=== PATIENT | male | born 1980 | race Caucasian/White ===

== ENCOUNTER → 2020-09-27 13:55 | Outpatient (BNVA) | payer OTHER, MEDICAID, SELFPAY | PROVIDERS: Visit Provider Internal Medicine | DX: F11.99 Opioid use, unspecified with unspecified opioid-induced disorder (principal); Z72.0 Tobacco use | CPT/HCPCS: 80305 ==

== ENCOUNTER → 2020-10-04 14:45 | Outpatient (BNVA) | payer OTHER, MEDICAID, SELFPAY | PROVIDERS: Visit Provider Internal Medicine | DX: F11.20 Opioid dependence, uncomplicated (principal); Z51.81 Encounter for therapeutic drug level monitoring; Z79.899 Other long term (current) drug therapy | CPT/HCPCS: 80305 ==

== ENCOUNTER → 2020-10-11 09:37 | Outpatient (BNVA) | payer OTHER, MEDICAID, SELFPAY | PROVIDERS: Visit Provider Internal Medicine | DX: F11.20 Opioid dependence, uncomplicated (principal); Z51.81 Encounter for therapeutic drug level monitoring; Z79.899 Other long term (current) drug therapy | CPT/HCPCS: 80305 ==

== ENCOUNTER → 2020-10-16 09:20 | Outpatient (BNVA) | payer OTHER, MEDICAID, SELFPAY | PROVIDERS: Visit Provider Internal Medicine | DX: F11.99 Opioid use, unspecified with unspecified opioid-induced disorder (principal) | CPT/HCPCS: 80305 ==

== ENCOUNTER → 2020-10-30 09:23 | Outpatient (BNVA) | payer OTHER, MEDICAID, SELFPAY | PROVIDERS: Visit Provider Internal Medicine | DX: F11.90 Opioid use, unspecified, uncomplicated (principal); Z51.81 Encounter for therapeutic drug level monitoring | CPT/HCPCS: 80305 ==

== ENCOUNTER → 2020-11-13 08:55 | Outpatient (BNVA) | payer OTHER, MEDICAID, SELFPAY | PROVIDERS: Visit Provider Internal Medicine | DX: Z51.81 Encounter for therapeutic drug level monitoring (principal); F11.20 Opioid dependence, uncomplicated | CPT/HCPCS: 80305 ==

== ENCOUNTER → 2020-12-04 09:38 | Outpatient (BNVA) | payer OTHER, MEDICAID, SELFPAY | PROVIDERS: Visit Provider Internal Medicine | DX: F11.99 Opioid use, unspecified with unspecified opioid-induced disorder (principal); F10.10 Alcohol abuse, uncomplicated; F19.10 Other psychoactive substance abuse, uncomplicated; F41.9 Anxiety disorder, unspecified; Z72.0 Tobacco use; Z51.81 Encounter for therapeutic drug level monitoring | CPT/HCPCS: 80305 ==

== ENCOUNTER → 2021-01-03 10:27 | Outpatient (BNVA) | payer OTHER, MEDICAID, SELFPAY | PROVIDERS: Visit Provider Internal Medicine | DX: F11.90 Opioid use, unspecified, uncomplicated (principal); Z72.89 Other problems related to lifestyle | CPT/HCPCS: 80305 ==

== ENCOUNTER → 2021-02-05 11:41 | Outpatient (BNVA) | payer OTHER, MEDICAID, SELFPAY | PROVIDERS: Visit Provider Internal Medicine | DX: F11.99 Opioid use, unspecified with unspecified opioid-induced disorder (principal); F10.99 Alcohol use, unspecified with unspecified alcohol-induced disorder; K21.9 Gastro-esophageal reflux disease without esophagitis; Z72.0 Tobacco use; Z91.09 Other allergy status, other than to drugs and biological substances; Z51.81 Encounter for therapeutic drug level monitoring | CPT/HCPCS: 80305 ==

== ENCOUNTER 2021-03-05 11:04 | Outpatient (REF) | payer OTHER, MEDICAID, SELFPAY ==
[2021-03-05 18:29] LABS: Fentanyl, urine Not Detected (Not Detect)
== END 2021-03-05 11:05 | disposition home or self-care (01) ==
LOC: HO.LNP 11:04
PROVIDERS: PCP Internal Medicine; Visit Provider Internal Medicine
DX: F11.20 Opioid dependence, uncomplicated (principal); Z79.899 Other long term (current) drug therapy
CPT/HCPCS: 80305; 80307

== ENCOUNTER → 2021-04-01 11:31 | Outpatient (BNVA) | payer OTHER, MEDICAID, SELFPAY | PROVIDERS: PCP Internal Medicine; Visit Provider Internal Medicine | DX: F11.90 Opioid use, unspecified, uncomplicated (principal) | CPT/HCPCS: 80305 ==

== ENCOUNTER → 2021-04-29 10:39 | Outpatient (BNVA) | payer OTHER, MEDICAID, SELFPAY | PROVIDERS: PCP Internal Medicine; Visit Provider Internal Medicine | DX: Z51.81 Encounter for therapeutic drug level monitoring (principal); F11.90 Opioid use, unspecified, uncomplicated; Z72.89 Other problems related to lifestyle | CPT/HCPCS: 80305 ==

== ENCOUNTER → 2021-05-28 15:40 | Outpatient (BNVA) | payer OTHER, MEDICAID, SELFPAY | PROVIDERS: PCP Internal Medicine; Visit Provider Internal Medicine | DX: Z51.81 Encounter for therapeutic drug level monitoring (principal); F11.20 Opioid dependence, uncomplicated | CPT/HCPCS: 80305 ==

== ENCOUNTER → 2021-06-24 15:28 | Outpatient (BNVA) | payer OTHER, MEDICAID, SELFPAY | PROVIDERS: PCP Internal Medicine; Visit Provider Internal Medicine | DX: Z51.81 Encounter for therapeutic drug level monitoring (principal); F11.20 Opioid dependence, uncomplicated | CPT/HCPCS: 80305 ==

== ENCOUNTER → 2021-07-22 15:18 | Outpatient (BNVA) | payer OTHER, MEDICAID, SELFPAY | PROVIDERS: PCP Internal Medicine; Visit Provider Internal Medicine | DX: Z51.81 Encounter for therapeutic drug level monitoring (principal); F11.20 Opioid dependence, uncomplicated | CPT/HCPCS: 80305 ==

== ENCOUNTER 2021-09-03 11:47 | Emergency (ER) | payer OTHER, MEDICAID, SELFPAY ==
--- NOTE | ~2021-09-03 | XR_ITS ---
EXAMINATION: XR FOOT, LEFT CLINICAL INFORMATION: Heel pain. COMPARISON: None TECHNIQUE: AP, lateral, and oblique views of the left foot. FINDINGS: The bones and soft tissues are normal. No fracture. Alignment is anatomic. Joint spaces are maintained. XR/XR foot LT min 3V IMPRESSION: Unremarkable left foot.
[2021-09-03 12:12] VITALS: BP 126/87; PULSE 62; RESP 18; TEMP 36.1; O2SAT 99; BMI 23.7
--- NOTE | 2021-09-03 13:47 | ED_ITS ---
HPI - Extremity Problem General Chief complaint: Extremity Problem Stated complaint: heel pain for 3 days Time Seen by Provider: 09/03/21 13:41 History of Present Illness HPI Narrative: Patient complains bottom of left foot and left heel pain for several days, he thinks it is from overuse at work but is not sure, not sure He denies any other injury, no numbness weakness or tingling no fever Related Data Previous Rx's Medication Instructions Recorded acamprosate 333 mg tablet,delayed 333 mg PO BID 30 Days #60 tab 04/29/21 release omeprazole 20 mg capsule,delayed 20 mg PO DAILY 90 Days #90 cap 05/12/21 release buprenorphine 8 mg-naloxone 2 mg 2 film SUBLINGUAL DAILY 30 Days 07/22/21 sublingual film (Suboxone) #60 ea ibuprofen 800 mg tablet 800 mg PO Q8H PRN #20 tab 09/03/21 Allergies Allergy/AdvReac Type Severity Reaction Status Date / Time Seasonal Allergies Allergy Mild hayfever Verified 07/22/21 15:23 like symptoms Review of Systems Review of Systems: Positive for left foot pain Negatives are no fever no chills no headache no neck pain no back pain no ra diating pain no numbness weakness or tingling no rash no redness no laceration no wound no other joint pains Yes all other systems are reviewed and are negative PMFSH Past Medical History Source: nursing notes reviewed Medical History Alcohol abuse Alcohol use disorder Anxiety GERD (gastroesophageal reflux disease) Opioid use disorder Polysubstance abuse Tobacco abuse Social History Social History Alcohol intake: current Alcohol intake frequency: 3 or more drinks per day Patient Tobacco Use Status: Current everyday Tobacco user Tobacco use type: Cigarette Cigarettes Per Day: 15 Advance Directives: No Advance Directives Information Provided: No Physical Exam Vital Signs: Vital Signs: Last Vital Signs Temp 97.0 F 09/03/21 12:12 Pulse 62 09/03/21 12:12 Resp 18 09/03/21 12:12 BP 126/87 09/03/21 12:12 Pulse Ox 99 09/03/21 12:12 BMI result Body Mass Index 23.7 General appearance no distress Head is normocephalic atraumatic Neck is supple The back is full range of motion Respiratory no distress Extremities full range of motion x4 Skin no rashes Left foot exam there is tenderness on the plantar proximal foot and the heel, there is no redness no warmth no wound no rash, skin is normal in appearance, pulses are full intact and symmetrical in both feet, sensation and motor are intact Course Course Course Narrative: Patient with left foot and heel pain possibly from work related activity but not sure is treated with anti-inflammatory advised to follow with fisheries management biologist, or [facility] if it is found to be work related Now there is no sign of any bony injury or infection X-ray of the left foot was normal Discharge Plan Discharge Clinical Impression: Tendinitis of left foot Patient Disposition: Home, Self-Care Additional Instructions: X-ray did not show any abnormality Physical exam there was no sign of any infection It is possible this is a tendinitis from an overuse injury at work, it is also possible this is plantar fasciitis Best plan is follow with a fisheries management biologist, or [facility] for work related inj ury Return any time any worse condition or any concerns Prescriptions: New ibuprofen 800 mg tablet 800 mg PO Q8H PRN (Reason: pain) Qty: 20 0RF No Action omeprazole 20 mg capsule,delayed release(DR/EC) 20 mg PO DAILY 90 Days Qty: 90 1RF buprenorphine-naloxone [Suboxone] 8-2 mg film 2 film sublingual DAILY 30 Days Qty: 60 1RF Rx Instructions: place 1 strip/tab under (each) side of tongue acamprosate 333 mg tablet,delayed release (DR/EC) 333 mg PO BID 30 Days Qty: 60 5RF Rx Instructions: administer with mid-day and evening meals Referrals: [facility] [Provider Group] (Left foot tendinitis) Harrison Degroot MD [Physician] - Noman Ramírez DPM [Physician] - Stand Alone Forms: Work/School Release
== END 2021-09-03 14:13 | disposition home or self-care (01) ==
PROVIDERS: Emergency Provider Emergency Medicine Emergency Medical Services; PCP Internal Medicine
DX: M65.272 Calcific tendinitis, left ankle and foot (principal); F17.210 Nicotine dependence, cigarettes, uncomplicated; Z71.6 Tobacco abuse counseling; Z79.899 Other long term (current) drug therapy
CPT/HCPCS: 73630; 99282; 99283

== ENCOUNTER → 2021-09-19 14:10 | Outpatient (BNVA) | payer OTHER, MEDICAID, SELFPAY | PROVIDERS: PCP Internal Medicine; Visit Provider Internal Medicine | DX: Z13.89 Encounter for screening for other disorder (principal) | CPT/HCPCS: 80305 ==

== ENCOUNTER → 2021-11-14 15:08 | Outpatient (BNVA) | payer OTHER, MEDICAID, SELFPAY | PROVIDERS: PCP Internal Medicine; Visit Provider Internal Medicine | DX: Z51.81 Encounter for therapeutic drug level monitoring (principal); F10.10 Alcohol abuse, uncomplicated | CPT/HCPCS: 80305 ==

== ENCOUNTER 2022-05-23 15:20 | Emergency (ER) | payer OTHER, MEDICAID, SELFPAY ==
[2022-05-23 15:28] VITALS: BP 133/79; BP 136/90; PULSE 70; PULSE 76; RESP 18; TEMP 37.6; O2SAT 98; BMI 23.0
--- NOTE | 2022-05-23 15:32 | ECG_ITS ---
Test Reason : SYNCOPE Blood Pressure : / mmHG Vent. Rate : 072 BPM Atrial Rate : 072 BPM P-R Int : 138 ms QRS Dur : 094 ms QT Int : 402 ms P-R-T Axes : -02 036 037 degrees QTc Int : 440 ms Normal sinus rhythm Normal ECG When compared with ECG of 17-FEB-2018 18:42, No significant change was found Referred By: Toñito De La Torre Electronically Signed By:Hong Posey
[2022-05-23 16:03] LABS: MANUAL DIFF FLAG NO
[2022-05-23 16:05] VITALS: O2SAT 98
--- NOTE | 2022-05-23 16:07 | ED.GENADULT ---
HPI - General Adult General Chief complaint: Syncope Stated complaint: syncopy Time Seen by Provider: 05/23/22 15:31 Source: patient and EMS Mode of arrival: EMS Limitations: other (poor historian unclear story ) History of Present Illness HPI narrative: This is a 41-year-old male past medical history significant for opiate use disorder on Suboxone, anxiety, presenting to the emergency department complaints of nausea, vomiting, malaise, fatigue, headache ( diffuse, atraumatic, without vision changes or dizziness,severe x1 day. Patient tells me that he felt like he was nauseous, vomited and then passed out in his car, he was found sleeping in his car at a liquor store parking lot. He tells me he woke up to police knocking on his window. He tells me the car was parked, and there was no crash. He tells me he had 1 drink today, patient drinks atleast 6-8 drinks a day. He denies drug use he tells me he is on Suboxone. Denies SI HI. Denies chest pain, shortness of breath, vision changes, dizziness, weakness, fevers and chills GCS of 14 E (4) V (4) M (6) on arrival NIH stroke scale 0. Related Data Previous Rx's Medication Instructions Recorded acamprosate 333 mg tablet,delayed 333 mg PO BID 30 days #60 tabs 04/29/21 release ibuprofen 800 mg tablet 800 mg PO Q8H PRN pain #20 tabs 09/03/21 sertraline 100 mg tablet 100 mg PO DAILY 30 days #30 tabs 09/19/21 omeprazole 20 mg capsule,delayed 20 mg PO DAILY 90 days #90 caps 01/09/22 release buprenorphine 8 mg-naloxone 2 mg 2 film sublingual DAILY 30 days 05/11/22 sublingual film (Suboxone) #60 ea Allergies Allergy/AdvReac Type Severity Reaction Status Date / Time Seasonal Allergies Allergy Mild hayfever Verified 05/11/22 15:52 like symptoms Review of Systems Review of Systems: Constitutional : No Weight loss, No Fever, No Chills, + Fatigue, + Malaise ENT/Mouth : No sore throat, No Rhinorrhea Eyes: No Eye Pain, No Swelling, No Redness Cardiovascular : No Chest Pain, No SOB, No Dyspnea on Exertion, No Orthopnea, No Edema, No Palpitations Respiratory : No Cough, No Sputum, No Wheezing Gastrointestinal : + Nausea, + Vomiting, No Diarrhea, No Constipation, No abdominal Pain, No Hematochezia, No Melena Genitourinary : No Dysuria, No Urinary Frequency, No Hematuria, Musculoskeletal : No joint pain, No Myalgias, No Joint Swelling Skin : No Skin Lesions, No rash Neuro : No Weakness, No Numbness, No Dizziness, + Headache Psych : No Anxiety/Panic, No Depression All other systems reviewed and are negative Yes all other systems are reviewed and are negative [facility] Past Medical History Medical History Alcohol abuse Alcohol use disorder Anxiety GERD (gastroesophageal reflux disease) Opioid use disorder Polysubstance abuse Tobacco abuse Social History Social History Housing: House Alcohol intake: current Alcohol intake frequency: 3 or more drinks per day Alcohol type: beer Patient Tobacco Use Status: Current everyday Tobacco user Tobacco use type: Cigarette Cigarettes Per Day: 15 Smoked in Last 30 Days: Yes e-Cigarette/Vaping Use: Never Used Second Hand Smoke Exposure: No Use of substances other than those prescribed or required for medical reasons: No Advance Directives: No Advance Directives Information Provided: Yes service: No Current occupational status: employed Cognitive needs: No Hearing needs: No Vision needs: No Physical Exam ED Vital Signs: Vital Signs - 24 hr 05/23/22 15:28 05/23/22 16:05 Temperature 99.6 F Pulse Rate 70 Respiratory Rate 18 Blood Pressure 133/79 Pulse Oximetry 98 98 Oxygen Delivery Method Room Air Room Air BMI result Body Mass Index 23.0 vital signs stable Appearance: Alert.? Oriented X3.? No acute distress.? Head: Normocephalic, atraumatic, no step-offs or deformities Eyes: Pupils equal, round and reactive to light.? ENT: Pharynx normal.? Neck: Normal inspection.? Neck supple.? CVS: Normal heart rate and rhythm.? Pulses normal.? Respiratory: No respiratory distress.? Breath sounds normal.? Abdomen: Soft and nontender.? Skin: Skin warm and dry.? Normal skin color.? Normal skin turgor.? Extremities: No lower extremity edema.? No calf ttp. 5/5 strength to bilateral upper and lower extremities Neuro: Oriented X 3.? No motor deficit.? No sensory deficit. CN 2-12 intact . Normal [id number]. Negative pronator drift and Romberg. Course Reevaluation(s) Reevaluation #1: Patient now stating this is the worse headache of his life, starting to develop a left-sided facial droop with eye droop. Did just obtain a phone call from [facility] stating an acute subarachnoid hemorrhage possible from an aneurysmal hemorrhage. . Call out to [facility]. Patient has no known history of aneurysms, no known family history of aneurysms. 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 CBC within normal limits. Chemsitry within normal limits. Trop elevated 58.[address] Dimer 240. Dr. Jackman surgery stating this is not a trauma waiting for call back from neuro. My attending actively involved in this case and guiding me. Time: 16:40 Reevaluation #2: We did call back out to [facility]. My attending spoke to the transfer line there currently paging neuro interventional. waiting for call back. Patient remains with a GCS of 14. Hemodynamically stable. Will continue to closely monitor Time: 16:53 Reevaluation #3: Dr. Arreola spoke to [facility], pending call back. Time: 17:00 Additional Reevaluation(s): 1702 Patient accepted to medical ICU . CTA head and neck being done, as attending from [facility] felt as this would be helpful for neurointerventional surgical planning if needed . Images uploaded to [facility]. COVID negative. 1726 delay in patient being transferred due to [facility] not calling with room number, ambulance company states that they cannot transfer without a specific room number. Medications Administered Discontinued Medications Generic Name Dose Route Start Last Admin Trade Name Freq PRN Reason Stop Dose Admin Fentanyl 25 mcg 05/23/22 16:39 05/23/22 16:51 Fentanyl Citrate/Pf 100 Mcg/2 Ml Vial IVPUSH 05/23/22 16:40 25 mcg ONCE ONE Administration Protocol Sodium Chloride 1,000 mls @ 999 mls/hr 05/23/22 15:45 05/23/22 16:00 Ns IV 05/23/22 16:45 999 mls/hr .Q1H1M RIDGE Administration Iohexol 100 ml 05/23/22 17:32 05/23/22 17:33 Iohexol 350 Mg/Ml 100 Ml Infus..Btl IV 05/23/22 17:33 70 ml ONCE ONE Administration Ketorolac Tromethamine 30 mg 05/23/22 15:53 05/23/22 16:02 Ketorolac Tromethamine 15 Mg/Ml Vial IVPUSH 05/23/22 15:54 30 mg ONCE ONE Administration Ondansetron HCl 4 mg 05/23/22 15:53 05/23/22 16:01 Ondansetron Hcl 4 Mg/2 Ml Vial IVPUSH 05/23/22 15:54 4 mg ONCE ONE Administration Medical Decision Making Medical Decision Making [facility] Narrative: 1600 41-year-old male presents with syncope,nausea, vomiting, malaise, fatigue, headache ( diffuse, atraumatic, without vision changes or dizziness). Unclear story poor historian. Not on thinners. Physical examination benign. GCS 14. NIHSS 0 Physical exam benign. Will rule out orthostatic hypotension, electrolyte abnormalities, dysrhythmias, substance abuse. Will also rule out viral etiologies. Patient does not have abdominal pain or chest pain, low suspicion for AAA. Headache severe will rule out spontaneous bleed, ICH. Plan at this time labs, imaging, urine, head CT, CHAPPELL, ethanol. Lab Data Result Diagrams: 05/23/22 15:58 05/23/22 15:58 Labs: Lab Results 05/23/22 05/23/22 05/23/22 Range/Units 15:58 15:58 15:58 WBC 7.7 (4.8-10.8) X10*3/uL RBC 4.80 (4.60-5.80) X10*6/uL Hgb 15.3 (14.0-18.0) g/dl Hct 41.7 L (42.0-52.0) % MCV 86.9 (80.0-98.0) fL MCH 31.9 (27.0-33.0) pg MCHC 36.7 H (31.0-36.0) g/dl RDW 11.3 (11.0-16.0) % Plt Count 222 (160-400) X10*3/uL MPV 9.3 L (9.4-12.4) fL Immature Gran % (Auto) 0.4 (0.0-0.4) % Neut % (Auto) 56.8 (45-73) % Lymph % (Auto) 32.4 (20-40) % [place] % (Auto) 8.0 (2-11) % Eos % (Auto) 1.6 (0-4) % Baso % (Auto) 0.8 (0-2) % Lymph # (Auto) 2.5 (1.2-4.9) X10*3/uL [place] # (Auto) 0.6 (0.1-1.2) X10*3/uL Eos # (Auto) 0.1 (0.0-0.4) X10*3/uL Baso # (Auto) 0.1 (0.0-0.2) X10*3/uL Abs Immat Gran (auto) 0.03 (0.00-0.03) X10*3/uL Absolute Neuts (auto) 4.4 (2.0-8.3) x10*3/uL Absolute Nucleated RBC 0.000 (0.0-0.012) X10*3/uL Nucleated RBC % (auto) 0.0 (0.0-0.2) /100WBC PT 12.1 (10.0-13.1) SEC INR 1.1 (0.9-1.1) D-Dimer High Sensitivty 240 NG/ML Sodium 138 (135-145) mmol/L Potassium 3.3 (3.3-5.1) mmol/L Chloride 102 (96-108) mmol/L Carbon Dioxide 26 (22-29) mmol/L Anion Gap 13 (12-20) BUN 10 (9-16) mg/dL Creatinine 0.76 (0.5-1.4) mg/dL Estim Creat Clear Calc 138.1 Estimated GFR > 60 Random Glucose 129 H (60-115) mg/dL Calcium 9.2 (8.4-10.2) mg/dL Magnesium 1.5 L (1.6-2.6) mg/dL Total Bilirubin 0.6 (0.0-1.0) mg/dL AST 34 (5-37) U/L ALT 22 (0-40) U/L Alkaline Phosphatase 52 (39-117) U/L Troponin I High Sens (<3.5-35.0) ng/L Total Protein 6.5 (6.5-8.0) g/dL Albumin 4.2 (3.5-5.0) g/dL Ethyl Alcohol < 10 mg/dL COVID-19 (JULITA) (Negative) COVID-19 Clin Com Influenza Type A (TERE) (Negative) Influenza Type B (TERE) (Negative) Influenza A & B Note 05/23/22 05/23/22 05/23/22 Range/Units 15:58 16:29 16:29 WBC (4.8-10.8) X10*3/uL RBC (4.60-5.80) X10*6/uL Hgb (14.0-18.0) g/dl Hct (42.0-52.0) % MCV (80.0-98.0) fL MCH (27.0-33.0) pg MCHC (31.0-36.0) g/dl RDW (11.0-16.0) % Plt Count (160-400) X10*3/uL MPV (9.4-12.4) fL Immature Gran % (Auto) (0.0-0.4) % Neut % (Auto) (45-73) % Lymph % (Auto) (20-40) % [place] % (Auto) (2-11) % Eos % (Auto) (0-4) % Baso % (Auto) (0-2) % Lymph # (Auto) (1.2-4.9) X10*3/uL [place] # (Auto) (0.1-1.2) X10*3/uL Eos # (Auto) (0.0-0.4) X10*3/uL Baso # (Auto) (0.0-0.2) X10*3/uL Abs Immat Gran (auto) (0.00-0.03) X10*3/uL Absolute Neuts (auto) (2.0-8.3) x10*3/uL Absolute Nucleated RBC (0.0-0.012) X10*3/uL Nucleated RBC % (auto) (0.0-0.2) /100WBC PT (10.0-13.1) SEC INR (0.9-1.1) D-Dimer High Sensitivty NG/ML Sodium (135-145) mmol/L Potassium (3.3-5.1) mmol/L Chloride (96-108) mmol/L Carbon Dioxide (22-29) mmol/L Anion Gap (12-20) BUN (9-16) mg/dL Creatinine (0.5-1.4) mg/dL Estim Creat Clear Calc Estimated GFR Random Glucose (60-115) mg/dL Calcium (8.4-10.2) mg/dL Magnesium (1.6-2.6) mg/dL Total Bilirubin (0.0-1.0) mg/dL AST (5-37) U/L ALT (0-40) U/L Alkaline Phosphatase (39-117) U/L Troponin I High Sens 58.6 H (<3.5-35.0) ng/L Total Protein (6.5-8.0) g/dL Albumin (3.5-5.0) g/dL Ethyl Alcohol mg/dL COVID-19 (JULITA) Negative (Negative) COVID-19 Clin Com See Note Influenza Type A (TERE) Negative (Negative) Influenza Type B (TERE) Negative (Negative) Influenza A & B Note See Note Critical Care Time Critical Care Time Critical Care Time: Yes Total Critical Care Time: 60 Attestation: I attest to this time spent taking care of the patient, obtaining history, physical, reviewing labs, imaging, speaking to my attending, speaking to specialist. Discharge Plan Discharge Clinical Impression: Subarachnoid hemorrhage, Aneurysmal subarachnoid hemorrhage, Nausea & vomiting Patient Disposition: [facility] Transfer Details: Transfer to medical ICU at [facility] Dr. Recio Prescriptions: No Action omeprazole 20 mg capsule,delayed release(DR/EC) 20 mg PO DAILY 90 Days Qty: 90 0RF ibuprofen 800 mg tablet 800 mg PO Q8H PRN (Reason: pain) Qty: 20 0RF sertraline 100 mg tablet 100 mg PO DAILY 30 Days Qty: 30 5RF buprenorphine-naloxone [Suboxone] 8-2 mg film 2 film sublingual DAILY 30 Days Qty: 60 1RF Rx Instructions: place 1 strip/tab under (each) side of tongue acamprosate 333 mg tablet,delayed release (DR/EC) 333 mg PO BID 30 Days Qty: 60 5RF Rx Instructions: administer with mid-day and evening meals
[2022-05-23 16:09] LABS: Basophils Absolute Auto 0.1 X10*3/uL (0.0-0.2); Basophils Percent Auto 0.8 % (0-2); Eosinophils Absolute Auto 0.1 X10*3/uL (0.0-0.4); Eosinophils Percent Auto 1.6 % (0-4); Hematocrit 41.7 % (42.0-52.0); Hemoglobin 15.3 g/dl (14.0-18.0); Imm Gran Abs Auto 0.03 X10*3/uL (0.00-0.03); Imm Gran Pct Auto 0.4 % (0.0-0.4); Lymphocytes Absolute Auto 2.5 X10*3/uL (1.2-4.9); Lymphocytes Percent Auto 32.4 % (20-40); Mean Corpuscular HGB Conc 36.7 g/dl (31.0-36.0); Mean Corpuscular Hemoglobin 31.9 pg (27.0-33.0); Mean Corpuscular Volume 86.9 fL (80.0-98.0); Mean Platelet Volume 9.3 fL (9.4-12.4); Monocytes Absolute Auto 0.6 X10*3/uL (0.1-1.2); Neutrophils Absolute Auto 4.4 x10*3/uL (2.0-8.3); Neutrophils Percent Auto 56.8 % (45-73); Platelet Count 222 X10*3/uL (160-400); Red Cell Distribution Width 11.3 % (11.0-16.0); White Blood Count 7.7 X10*3/uL (4.8-10.8)
[2022-05-23 16:17] LABS: D Dimer High Sensitivity 240 NG/ML
[2022-05-23 16:24] LABS: Alanine Aminotransferase 22 U/L (0-40); Albumin Level 4.2 g/dL (3.5-5.0); Alkaline Phosphatase 52 U/L (39-117); Anion Gap 13 (12-20); Aspartate Amino Transferase 34 U/L (5-37); Bilirubin Total 0.6 mg/dL (0.0-1.0); Blood Urea Nitrogen 10 mg/dL (9-16); Calcium 9.2 mg/dL (8.4-10.2); Carbon Dioxide 26 mmol/L (22-29); Chloride 102 mmol/L (96-108); Creatinine Clr Calc Pharmacy 138.1; Estimated Glomerular Filt Rate > 60; Ethanol < 10 mg/dL; Glucose Random 129 mg/dL (60-115); Magnesium 1.5 mg/dL (1.6-2.6); Potassium 3.3 mmol/L (3.3-5.1); Sodium 138 mmol/L (135-145); Total Protein 6.5 g/dL (6.5-8.0)
[2022-05-23 16:28] LABS: Troponin-I High Sensitivity 58.6 ng/L (<3.5-35.0)
[2022-05-23 16:51] LABS: COVID-19 Test Negative (Negative); IDNOW Serial# 55D5AD1C
[2022-05-23 16:54] LABS: INTERNATIONAL NORM RATIO 1.1 (0.9-1.1); Prothrombin Time 12.1 SEC (10.0-13.1)
[2022-05-23 17:12] LABS: Influenza A Negative (Negative); Influenza B2 Negative (Negative)
== END 2022-05-23 17:56 | disposition short-term general hospital (02) ==
PROVIDERS: Physician Assistant; Emergency Provider Internal Medicine
DX: I60.9 Nontraumatic subarachnoid hemorrhage, unspecified (principal); I67.1 Cerebral aneurysm, nonruptured; R29.810 Facial weakness; R11.2 Nausea with vomiting, unspecified; F11.20 Opioid dependence, uncomplicated; Z20.822 Contact with and (suspected) exposure to COVID-19; F10.10 Alcohol abuse, uncomplicated; Y90.0 Blood alcohol level of less than 20 mg/100 ml; F41.9 Anxiety disorder, unspecified; F17.210 Nicotine dependence, cigarettes, uncomplicated; Z79.899 Other long term (current) drug therapy
CPT/HCPCS: 36415; 70450; 70496; 70498; 71045; 80053; 82077; 83735; 84484; 85025; 85379; 85610; 87502; 87635; 93005; 96374; 96375; 99285; J1885; J2405; J3010; Q9967